=== PATIENT | male | born 1995 | race Caucasian/White ===

== ENCOUNTER 2017-04-21 13:59 | Emergency (ER) | payer SELFPAY ==
[2017-04-21 14:28] VITALS: BP 110/66
--- NOTE | 2017-04-21 14:44 | ED ---
Laceration/Wound HPI - HPI Summary HPI Summary: 21 y/o female presents to the urgent care c/o laceration on his RT forearm after falling off his skateboard about 1200N. Pt states bleeding stopped and pain is 4/10 now. Last Tetanus shot was about 5 yeas ago. Pt states he can move his elbow and hand w/o any difficulty. Pt denies numbness or tingling over the fingers, SOB, chest pain, N/V/D. - History of Current Complaint Stated Complaint: RIGHT ARM LACERATION/INJURY Time Seen by Provider: 04/21/17 14:43 Hx Obtained From: Patient Onset/Duration: Sudden Onset - at 1200, Lasting Hours Aggravating: Movement Alleviating: Nothing Timing: Constant Onset Severity: Severe Current Severity: Moderate Pain Intensity: 4 Pain Scale Used: 0-10 Numeric Associated Signs & Symptoms: Pain - Allergy/Home Medications Allergies/Adverse Reactions: Allergies Allergy/AdvReac Type Severity Reaction Status Date / Time seasonal Allergy Eyes Uncoded 04/21/17 14:28 Itchy/Swollen/Red/Watery Home Medications: Home Medications Ashwaganda 1 cap PO DAILY 04/21/17 [History] Rodriguez's Wort ([place] Perf [[place] Wort] 150 mg PO DAILY 04/21/17 [ History Confirmed 04/21/17] PMH/Surg Hx/FS Hx/Imm Hx Previously Healthy: Yes Respiratory History: Reports: Hx Asthma Infectious Disease History: No Infectious Disease History: Denies: Traveled Outside the [place] in Last 30 Days - Social History Occupation: Student Lives: Dormitory/Roommates Alcohol Use: Occasionally Substance Use Type: Reports: None Smoking Status (MU): Current Every Day Smoker Type: eCigarettes Amount Used/How Often: 10 puffs q 2 hrs Review of Systems Constitutional: Negative Eyes: Negative ENT: Negative Cardiovascular: Negative Respiratory: Negative Gastrointestinal: Negative Genitourinary: Negative Positive: Other - RT elbow pain s/p fall Positive: Other - forearm laceration s/p fall from a skateboard Neurological: Negative Psychological: Normal All Other Systems Reviewed And Are Negative: Yes Physical Exam Triage Information Reviewed: Yes Vital Signs On Initial Exam: Initial Vitals Temp Pulse Resp BP 99.1 F 75 20 110/66 04/21/17 14:13 04/21/17 14:13 04/21/17 14:13 04/21/17 14:13 Appearance: Positive: Well-Appearing, No Pain Distress, Well-Nourished Skin: Positive: Warm, Skin Color Reflects Adequate Perfusion, Dry, Other - dorsal proximal forearm irregular laceration about 5 cm in size, The most proximal edge is about 1cm wide involving the dermis, tendons intact, no foreign body observed with the naked eye, mild tenderness on palpation. Sensation WNL, capillary refill intact, pulses WNL, FROM of upper extremity. Head/Face: Positive: Normal Head/Face Inspection Eyes: Positive: Normal, EOMI, CLARICE, Conjunctiva Clear ENT: Positive: Normal ENT inspection, Hearing grossly normal, Pharynx normal, TMs normal Neck: Positive: Supple, Nontender, No Lymphadenopathy Respiratory/Lung Sounds: Positive: Clear to Auscultation, Breath Sounds Present Cardiovascular: Positive: Normal, RRR, Pulses are Symmetrical in both Upper and Lower Extremities, S1, S2 Abdomen Description: Positive: Nontender, No Organomegaly, Soft. Negative: CVA Tenderness (R), CVA Tenderness (L) Bowel Sounds: Positive: Present Musculoskeletal: Positive: Normal, Strength/ROM Intact, Other - RT elbow FROM non tender to palpation. Positive pulses, capillary refill brisk, sensation WNL. Neurological: Positive: Normal, Sensory/Motor Intact, Alert, Oriented to Person Place, Time, CN Intact II-III Psychiatric: Positive: Normal Procedures - Laceration/Wound Repair 1 Location: upper extremity - dorsal prosimal forearm Description: Irregular - 5 cm in size with the most proximal edge about 1cm wide Anesthesia: 2.0%, Epi Length, Depth and Shape: 5 cm in length and the proximal side about 1cm in width Betadine Prep?: Yes Irrigated w/ Saline (ccs): 500 - done by nurse Laceration/Wound Explored: contaminated, no foreign body removed Closure: Single Layer, Yoselyn #__ - 12 sutures 4.0 Nylon Debridement: minimal - from the proximal edge Suture Type: Nylon - 4.0 Number of Sutures: 12 Layer Closure?: No Sterile Dressing Applied?: Yes Diagnostics - Vital Signs Vital Signs Temp Pulse Resp BP 04/21/17 14:13 99.1 F 75 20 110/66 - Laboratory Lab Statement: Any lab studies that have been ordered have been reviewed, and results considered in the medical decision making process. Laceration Repair Course/Dx - Course Course Of Treatment: 21 y/o female presents to the urgent care c/o laceration on his RT forearm after falling off his skateboard about 1200N. Pt states bleeding stopped and pain is 4/10 now. Last Tetanus shot was about 5 yeas ago. Pt states he can move his elbow and hand w/o any difficulty. Pt denies numbness or tingling over the fingers, SOB, chest pain, N/V/D. HX obtained. RT elbow X-ray ordered, Result:negative for fracture or soft tissue swelling or negative for foreign body. Sample taken from the wound and sent for for culture. Tdap IM inj ordered. Vacine given by Nurse. Pt tolerated well procedure. LACERATION PROCEDURE NOTE: . Copious irrigation was done with saline by the nurse and the wound explored. There was no FB or deep structure injury noted. FROM of Right forearm. procedure was explained and consent obtained, Timeout performed. The wound was anesthetized with 5 mL of 2 % lido/epi with good anesthesia. Sterile drape and prep were don. There were 12 sutures with 4.0 nylon type of suture. The length of the wound after closure was 5.0cm. minimal debridement done. Wound was covered bacitracin with sterile nonadherent dressing. The Pt tolerated the procedure well without adverse effects. Neurovascular intact and FROM. Pt Rx Bactrin PO and Ibuprofe PO for pain and swelling. Pt advised to f/u suture removal in 10 days and if any signs of infection develop to immediately return to the urgent care of PCP for further management and treatment. Pt understood and agreed and left the clinic ambulating A&Ox3. - Differential Dx Differental Diagnoses: Abrasion, Fracture, Laceration, Puncture Wound, Tendon Laceration - Clinical Impression Provider Diagnoses: Laceration of right forearm - Physician Notifications Discussed Care Of Patient With: Miguel Stein - Dr Stein agree with Pt plan and Tx Discharge - Discharge Plan Condition: Stable Disposition: HOME Prescriptions: Bacitracin OINTMENT* 1 applic TOPICAL TID #1 tube Ibuprofen TAB* [Motrin TAB* 800 MG] 800 mg PO Q6H #30 tab Sulfamethox/Trimethoprim DS* [Bactrim DS 800/160 TAB*] 1 tab PO BID #20 tab Patient Education Materials: Laceration (ED), Acute Wound Care (ED) Referrals: [facility] [Outside] Additional Instructions: 1-Please take full course of antibiotic to avoid resistance. 2- Keep wound clean and dry and avoid excessive movement w/ your elbow and forearm 3- F/u suture removal in 10 days w/ your PCP or here at the urgent care. 4-Take Ibuprofen or PO q6-8hrs prn for pain or swelling. 5- If you develop fever or redness around your finger despite the antibiotic please go to the ER immediately or return to the Urgent care.
[2017-04-21] MEDS ORDERED: Tetan/Diph/Pertus SYR(Tdap)* 0.5 ML SYR(BOOSTRIX) use SYR IM ONE (15:01)
[2017-04-21] MEDS ORDERED: Lidocaine 2% W/EPI 1:100,000* 20 ML MDV INJ ONE (15:01)
--- NOTE | 2017-04-21 15:33 | RAD ---
INDICATION: Right elbow pain, forearm laceration status post fall. TECHNIQUE: 2 views of the right elbow were obtained. FINDINGS: The bones are in normal alignment. No joint effusion or fracture is seen. Joint spaces appear maintained. IMPRESSION: NO EVIDENCE FOR FRACTURE.
== END 2017-04-21 16:35 | disposition home or self-care (01) ==
LOC: UCCORT 13:59
DX: S51.811A Laceration without foreign body of right forearm, initial encounter (principal); Z23 Encounter for immunization; J45.909 Unspecified asthma, uncomplicated; F17.290 Nicotine dependence, other tobacco product, uncomplicated; V00.131A Fall from skateboard, initial encounter; Y92.9 Unspecified place or not applicable
CPT/HCPCS: 12002; 87070; 87205; 90471; 90715; 99202; G0463